=== PATIENT | female | born 1940 | race African-American/Black ===

== ENCOUNTER 2021-03-02 18:29 | Inpatient (IN) | payer MEDICARE, OTHER ==
[2021-03-02] VITALS (90 sets, daily range): BP systolic 146–156; BP diastolic 65–78; PULSE 108–110; TEMP 98.9; O2SAT 89–100
[~2021-03-02] VITALS: Ht 157.5 cm; Wt 49.7 kg
[2021-03-02 19:13] LABS: MEAN CELL VOLUME 86 fl (80.0-100.0); MEAN CORPUSCULAR HGB CONC 31 g/dl (33.0-37.0); MEAN PLATELET VOLUME 12.8 fl (7.4-10.4); PLATELET COUNT 246 K/mm3 (130-400); RED BLOOD COUNT 3.42 M/mm3 (4.10-5.30); REDCELL DISTRIBUTION WIDTH-CV 14.5 % (11.5-14.5)
[2021-03-02 19:17] LABS: HEMATOCRIT 29.5 % (37.0-47.0); HEMOGLOBIN 9.1 g/dl (12.5-16.0); MEAN CORPUSCULAR HEMOGLOBIN 27 pg (27.0-31.0)
[2021-03-02 19:20] LABS: COLLECTION METHOD CATHETER
[2021-03-02 19:26] LABS: ALBUMIN 4.3 gm/dL (3.5-5.0); C-REACTIVE PROTEIN 8.9 mg/dL (0.0-0.9); CALCIUM 9.6 mg/dL (8.4-10.2); CREATININE, serum 2.71 (0.52-1.25); POTASSIUM 5.7 mmol/L (3.4-5.0); TOTAL PROTEIN 9.2 gm/dL (6.4-8.2)
[2021-03-02 19:28] LABS: MUCOUS Present /lpf; PH 5 (5-8); SQUAMOUS EPITHELIAL None Seen /hpf; URINE APPEARANCE Hazy; URINE BACTERIA Rare /hpf; URINE BILIRUBIN Negative (NEGATIVE); URINE BLOOD 2+ (NEGATIVE); URINE COLOR Yellow; URINE GLUCOSE 3+ (NEGATIVE); URINE KETONE 1+ (NEGATIVE); URINE LEUKOCYTE ESTERASE 1+ (NEGATIVE); URINE NITRATE Negative (NEGATIVE); URINE PROTEIN(semi-quant) 1+ (NEGATIVE); URINE RBC 0-2 /hpf; URINE UROBILINOGEN Negative (NEGATIVE)
[2021-03-02 21:38] LABS: BASOPHIL 1 % (0-2); LYMPHOCYTE 21 % (20.0-51.0); NEUTROPHILS 69 % (42.0-75.2)
[2021-03-02 21:39] LABS: PLATELET ESTIMATE NORMAL (NORMAL)
[2021-03-02 21:41] LABS: HYPOCHROMIA 2+
[2021-03-02 22:16] LABS: PHOSPHOROUS 4.2 mg/dL (2.5-4.5)
[2021-03-02 23:27] LABS: CALCIUM 9.4 mg/dL (8.4-10.2); CREATININE, serum 2.41 (0.52-1.25); POTASSIUM 3.9 mmol/L (3.4-5.0)
[2021-03-03] VITALS (1120 sets, daily range): BP systolic 139–166; BP diastolic 60–82; PULSE 98–111; TEMP 98.4–100; O2SAT 76–100
[2021-03-03 03:12] LABS: BASO % 0.3 % (0.0-2.0); EOS % 0.3 % (0-4.0); GRAN # 12.6 (1.4-6.5); GRAN % 79.9 % (42.2-75.2); LYMPH # 1.8 (1.2-3.4); LYMPH % 11.3 % (20.0-51.0); MEAN CELL VOLUME 86 fl (80.0-100.0); MEAN CORPUSCULAR HGB CONC 31 g/dl (33.0-37.0); MEAN PLATELET VOLUME 11.3 fl (7.4-10.4); MONO # 1.2 (0.1-0.6); MONO % 7.5 % (1.7-9.3); PLATELET COUNT 304 K/mm3 (130-400); RED BLOOD COUNT 2.76 M/mm3 (4.10-5.30); REDCELL DISTRIBUTION WIDTH-CV 14.5 % (11.5-14.5)
[2021-03-03 03:13] LABS: HEMATOCRIT 23.8 % (37.0-47.0); HEMOGLOBIN 7.4 g/dl (12.5-16.0); MEAN CORPUSCULAR HEMOGLOBIN 27 pg (27.0-31.0)
[2021-03-03 03:22] LABS: CALCIUM 8.7 mg/dL (8.4-10.2); CREATININE, serum 2.13 (0.52-1.25); POTASSIUM 3.7 mmol/L (3.4-5.0)
[2021-03-03 07:27] LABS: CALCIUM 8.9 mg/dL (8.4-10.2); CREATININE, serum 1.93 (0.52-1.25)
--- NOTE | 2021-03-03 09:23 | NUR ---
The patient has a history of dementia. [employer] contacted the patient's , Cody to complete intake. The patient lives at [facility]. The patient is independent and she has a walker and wheelchair if needed. The patient and Cody moved to [place] a week ago. Cody states their daughter Angelique lives locally and assisted in bringing them to [place]. The patient does not have a PCP but was supposed to have an initial appointment with Dr. Lawton this day at 1300. Cody states that they were going to have [facility] bath aide visit three times a week. The patient does not have advanced directives in the EMR but Cody states they are complete and will bring a copy to place in the chart. The plan is to return home with [facility] bath aide. MARIPOSA contacted Dr. Lawton's office to to provide patient update. MARIPOSA contacted Lynette with [facility]. She reports that the patient has a support medicare specialist and not home health services. *Discharge disposition at this time: Home with support care aides 3x a week.
--- NOTE | 2021-03-03 11:04 | NUR ---
PT is refusing water and food this am. PT answers to name. PT will not answer any other questions.
[2021-03-03 11:12] LABS: CALCIUM 8.8 mg/dL (8.4-10.2); CREATININE, serum 1.95 (0.52-1.25); POTASSIUM 4.3 mmol/L (3.4-5.0)
[2021-03-03] MEDS ORDERED: COZAAR 50MG50 MG/TAB PO (12:42)
[2021-03-03] MEDS ORDERED: JANUVIA50 MG PO (12:43)
--- NOTE | 2021-03-03 15:12 | NUR ---
First visit from the copper roller handler printing. No needs right now.
--- NOTE | 2021-03-03 19:22 | NUR ---
Report given to KILEY López.
--- NOTE | 2021-03-03 20:10 | NUR ---
DAUGTHER IN ROOM DURING ASSESSMENT, PATIENT ALERT SMILING, ON TASK MOST OF THE TIME, CONFUSION ABOUT DATE AND TIME, DENIES PAIN
[2021-03-04] VITALS (594 sets, daily range): BP systolic 136–151; BP diastolic 50–92; PULSE 100–109; TEMP 97.8–99.2; O2SAT 51–100
[2021-03-04 05:24] LABS: BASO # 0.1 (0.0-0.2); BASO % 0.3 % (0.0-2.0); EOS # 0.1 (0.0-0.7); EOS % 0.7 % (0-4.0); GRAN # 13.1 (1.4-6.5); GRAN % 72.2 % (42.2-75.2); LYMPH # 3.3 (1.2-3.4); LYMPH % 18.5 % (20.0-51.0); MEAN CELL VOLUME 87 fl (80.0-100.0); MEAN CORPUSCULAR HGB CONC 30 g/dl (33.0-37.0); MEAN PLATELET VOLUME 11.7 fl (7.4-10.4); MONO # 1.4 (0.1-0.6); MONO % 7.5 % (1.7-9.3); PLATELET COUNT 309 K/mm3 (130-400); RED BLOOD COUNT 2.92 M/mm3 (4.10-5.30); REDCELL DISTRIBUTION WIDTH-CV 14.6 % (11.5-14.5)
[2021-03-04 05:25] LABS: HEMATOCRIT 25.4 % (37.0-47.0); HEMOGLOBIN 7.7 g/dl (12.5-16.0); MEAN CORPUSCULAR HEMOGLOBIN 26 pg (27.0-31.0)
[2021-03-04 05:28] LABS: CALCIUM 9.2 mg/dL (8.4-10.2); CREATININE, serum 1.79 (0.52-1.25); POTASSIUM 3.8 mmol/L (3.4-5.0)
--- NOTE | 2021-03-04 07:31 | NUR ---
PT bedside blood glucose measured at 46. Hypoglycemic protocol followed and pateint given 4oz of orange juice. At the 15 minute check patient is up to 59. 4 more ounces of orange juice given along with a handfult of bites of eggs. PT blood glucose is 71 at 0813. The one hour jan PT is up to 96. Will assess again at noon.
--- NOTE | 2021-03-04 09:10 | NUR ---
Change Management Expert faxed updates to Leeanna at [facility] and to Lynette at [facility] Home [facility].
--- NOTE | 2021-03-04 11:38 | NUR ---
Cigar Head Perforator attended clinical rounds with the team. The patient has orders to transfer to the surgical floor. This SW informed surgical floor SW. Hospitalist discussed goals of care with the patient's , Cody. He would like to discuss this their daughter. *Discharge disposition at this time: [facility] with spouse. Services are Home Health and supportive care. Or possibly hospice, family discussing options.
--- NOTE | 2021-03-04 13:22 | NUR ---
Report called to KILEY Ignacio at 1134.
--- NOTE | 2021-03-04 13:42 | NUR ---
Pt arrived to the floor around 1230. Was told in report that the noon meds would be given, clarified and they were not. Will give now. Pt is confused and was fighting us when we transferred her over to the bed and rolled her to remove excess linens. Upon arrival, INT to her left hand had the IV fluids infusing, hand is puffy, IV infiltrated and removed. INT to her right forearm will not flush, removed. Partida to dependent drainage. Output is very cloudy and odorous. Pts is present with her upon transfer. He stated he would assist her with lunch.
--- NOTE | 2021-03-04 15:54 | NUR ---
Pt has been doing okay since arriving to the floor. IV started in her right wrist.
--- NOTE | 2021-03-04 19:17 | NUR ---
Resting quietly, davalos per gravity w/o issue, patient on telemetry, no s/s of hypo.hyper glycemia, updated on plan of care.
[2021-03-05] VITALS (7 sets, daily range): BP systolic 91–169; BP diastolic 23–80; PULSE 84–107; TEMP 98.2–99.1
[2021-03-05 06:54] LABS: BASO % 0.2 % (0.0-2.0); EOS # 0.2 (0.0-0.7); EOS % 1.3 % (0-4.0); GRAN # 10.6 (1.4-6.5); GRAN % 70.9 % (42.2-75.2); LYMPH # 2.6 (1.2-3.4); LYMPH % 17.5 % (20.0-51.0); MEAN CELL VOLUME 86 fl (80.0-100.0); MEAN CORPUSCULAR HGB CONC 31 g/dl (33.0-37.0); MEAN PLATELET VOLUME 11.8 fl (7.4-10.4); MONO # 1.4 (0.1-0.6); MONO % 9.1 % (1.7-9.3); PLATELET COUNT 340 K/mm3 (130-400); RED BLOOD COUNT 2.87 M/mm3 (4.10-5.30); REDCELL DISTRIBUTION WIDTH-CV 14.4 % (11.5-14.5)
[2021-03-05 06:56] LABS: HEMATOCRIT 24.7 % (37.0-47.0); HEMOGLOBIN 7.6 g/dl (12.5-16.0); MEAN CORPUSCULAR HEMOGLOBIN 26 pg (27.0-31.0)
[2021-03-05 07:08] LABS: CALCIUM 9.1 mg/dL (8.4-10.2); CREATININE, serum 1.65 (0.52-1.25); POTASSIUM 4.2 mmol/L (3.4-5.0)
--- NOTE | 2021-03-05 07:12 | NUR ---
Pt sitting up in bed pleasant behavior. Appears to not be in any pain. Bed alarm on
--- NOTE | 2021-03-05 09:00 | NUR ---
Pt did not eat very much for breakfast. Gave pt total bed bath. Pt fought when we were turning her, but quickly relaxed.
--- NOTE | 2021-03-05 09:32 | NUR ---
Initial visit; Patient thanked Cytotechnologist/Cytology Supervisor for looking in on her and offering prayer and God's blessings.
--- NOTE | 2021-03-05 11:30 | NUR ---
Pt has not eaten or drank much for us today. present in the room at this time. Pts IV has infiltrated. Talked with ASHLEY Yang regarding this has her IV from yesterday infiltrated also. Awaiting orders at this time
--- NOTE | 2021-03-05 14:00 | NUR ---
Sonia Rios meeting with pts and daughter
--- NOTE | 2021-03-05 15:38 | NUR ---
Attempted to meet with patient's Cody with phone call to daughter during meeting but daughter is available to come in to talk. Autumn BAINS also joined the meeting and Celia RAMIREZ did come talk with and daughter as well. Per , they have lived in this area earlier in their lives when he was stationed at [facility]. 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 They have just recently returned to to the area and have an independent living apartment at [facility]. Pt has been in the hospital much of the time that she has been back to the area. At this point, family is wanting a higher level of care for her than can be provided by home health services and has talked with Floyessi about a private room @ [facility] for possible rehab or a intermediate project manager care room. Pt has had a significant decline in her abilities with her UTI, and current hospitalization. Her ability and desire to eat and drink, ambulate, and maintain continence has dropped significantly. Family is requesting comfort care/hospice care for her at this time upon her return to [facility]. Family is also requesting DNR status after discussion. I spoke with Diamond Storm about two son and their wives visiting over the weekend (Noel and Caitlin Michaud, and Jose Maria and Hellen Gracia) which she approved. Angelique is already on the approved visitor list and her Torrey can visit. Family would like to visit her in a "semi-familiar" environment before she is moved one more time to [facility]. Support was provided and family was advised of approved visitors. Comfort quilt was provided.
--- NOTE | 2021-03-05 16:32 | NUR ---
Project Buyer participated in goals of care meeting with KILEY Scott and ASHLEY Ozuna. Patient's and daughter, Francesca (ph#[phone]) feel at this time that rehab would not be beneficial to patient and would like for patient to return to [facility] on hospice. MARIPOSA contacted Leeanna at [facility] and faxed clinical updates. MARIPOSA spoke with Leeanna about goals of care. Leeanna advised they would be able to accept patient back on hospice and that they are allowing hospice agencies in. Leeanna advised they would accept patient when ready for discharge pending coordination with the hospice agency that patient's family chooses for an intake. MARIPOSA followed up with Francesca about hospice agencies that serve [place] and at this time, Francesca chooses [facility]. MARIPOSA contacted Roman (ph#[phone]) at [facility] and faxed referral. MARIPOSA notified Leeanna that patient's family chose [facility]. Discharge Plan: [facility] with [facility].
--- NOTE | 2021-03-05 18:15 | NUR ---
Pt daughter arrived and is going to help see if she can get the pt to eat anything. Scrambled eggs ordered and gave her a pudding from the fridge.
--- NOTE | 2021-03-05 19:20 | NUR ---
Awake, alert, emotional and tearful, visitors at bedside, medicated for pain per MAR, ice pack applied to abdomen, updated patient on plan of care, call samuels w/i reach.
[2021-03-06 00:10] VITALS: BP 140/65; PULSE 100; TEMP 98.5
[2021-03-06 04:11] VITALS: BP 130/59; PULSE 97; TEMP 97.5
[2021-03-06 07:41] VITALS: BP 110/68; PULSE 89; TEMP 97.4
--- NOTE | 2021-03-06 09:09 | NUR ---
MD Jus notified pt's daughter stated on telephone this morning "she was complaining it hurt when she was chewing food. Maybe she has a dental cavity or abcess that was the main cause of everything here" MD Jus will perform oral assessment
[2021-03-06 11:25] VITALS: BP 141/65; PULSE 83; TEMP 97.9
--- NOTE | 2021-03-06 13:06 | NUR ---
DTR called and has concerns about hosipice care. DTR indicated that she wants her family to be able to visit and would be looking toward a noon transfer because on the the Adult children is coming from [place]. DTR asked questions about care supports and prompting of food. SW educated DTR on care supports and reassured of comfort process. Plan is to support DC tomorrow with Coordination of care.
[2021-03-06 15:53] VITALS: BP 154/64; PULSE 87; TEMP 97.9
--- NOTE | 2021-03-06 19:13 | NUR ---
Awake, alert, confused, daughter and at bedside, patient is total care, feeding assistance is required, tolerating purreed food at this time, no s/s of hypo/hyper glycemia, updated family and patient on plan of care.
[2021-03-06 20:38] VITALS: BP 115/62; PULSE 92; TEMP 99.5
[2021-03-07 00:51] VITALS: BP 145/57; PULSE 93; TEMP 98.2
[2021-03-07 04:35] VITALS: BP 136/55; PULSE 88; TEMP 98.1
[2021-03-07 06:57] LABS: MEAN CELL VOLUME 86 fl (80.0-100.0); MEAN CORPUSCULAR HGB CONC 32 g/dl (33.0-37.0); MEAN PLATELET VOLUME 11.4 fl (7.4-10.4); RED BLOOD COUNT 2.76 M/mm3 (4.10-5.30); REDCELL DISTRIBUTION WIDTH-CV 14.2 % (11.5-14.5)
[2021-03-07 07:02] LABS: CREATININE, serum 1.84 (0.52-1.25); POTASSIUM 4.2 mmol/L (3.4-5.0)
[2021-03-07 07:32] LABS: HEMATOCRIT 23.8 % (37.0-47.0); HEMOGLOBIN 7.5 g/dl (12.5-16.0); MEAN CORPUSCULAR HEMOGLOBIN 27 pg (27.0-31.0); PLATELET COUNT 448 K/mm3 (130-400)
[2021-03-07 08:00] VITALS: BP 106/39; PULSE 90; TEMP 98
--- NOTE | 2021-03-07 08:00 | NUR ---
PATIENT IS CONFUSED BUT ORIENTED TO PERSON. VSS. NO C/O PAIN OR NAUSEA. AM BS WAS 153. AM MEDS GIVEN. PUREE DIET, PATIENT REFUSING TO EAT. AT BEDSIDE. DNR. PLAN IS TO TRANSFER TO [facility] TODAY. ALCANTARA TO DD WITH MOD AMOUNTS OF PINK-TINGED URINE NOTED. REPLACED STAT-LOCK FOR ALCANTARA PATIENT KEEPS PULLING IT OFF. REPOSITIONED PATIENT TO COMFORT. HEAD TO TOE ASSESSMENT COMPLETE. BED ALARM ON. CALL LIGHT IN REACH.
[2021-03-07 09:12] LABS: EOSINOPHIL 2 % (0-4); LYMPHOCYTE 31 % (20.0-51.0); NEUTROPHILS 57 % (42.0-75.2); PLATELET ESTIMATE INCREASED (NORMAL)
[2021-03-07 09:13] LABS: HYPOCHROMIA 2+
[2021-03-07] MEDS ORDERED: OMNICEF 300MG300 MG PO (09:29)
[2021-03-07] MEDS ORDERED: ROXANOL 20MG20 MG/ML PO (09:39)
--- NOTE | 2021-03-07 10:40 | NUR ---
Faxed DC order to [facility] at 10:40 am for Hospice Care made contact with [facility] Anna Marie to coordiate care at [facility] at 12:00 [facility] will transport via Wheelchair to [facility] notifed nurse. PRIYA
[2021-03-07 11:38] VITALS: BP 141/57; PULSE 84; TEMP 98.9
--- NOTE | 2021-03-07 12:30 | NUR ---
PATIENT DISCHARGING VIA WC TO HOSPICE AT [facility] VIA VAN SERVICE. GAVE INFO PACKET TO AUDIOLOGY DIRECTOR. FAMILY HAS PERSONAL BELONGINGS. NO IV SITE. CALLED REPORT TO [facility] NURSE. PATIENT DISCHARGED.
== END 2021-03-07 12:30 | disposition hospice, inpatient (51) | DRG 638 ==
LOC: COL.ER 18:29 → SURG 20:38 → ICU 20:38 → SURG 03-04 12:30
PROVIDERS: Nurse Practitioner; Physician Assistant; Student in an Organized Health Care Education/Training Program; ADMIT Emergency Medicine
DX: E11.10 Type 2 diabetes mellitus with ketoacidosis without coma (principal); N39.0 Urinary tract infection, site not specified; R65.10 Systemic inflammatory response syndrome (SIRS) of non-infectious origin without acute organ dysfunction; N17.9 Acute kidney failure, unspecified; I10 Essential (primary) hypertension; I12.9 Hypertensive chronic kidney disease with stage 1 through stage 4 chronic kidney disease, or unspecified chronic kidney disease; E11.22 Type 2 diabetes mellitus with diabetic chronic kidney disease; F03.90 Unspecified dementia, unspecified severity, without behavioral disturbance, psychotic disturbance, mood disturbance, and anxiety; E87.5 Hyperkalemia; D64.9 Anemia, unspecified; Z66 Do not resuscitate
CPT/HCPCS: 99223-AI; 99231-AI; 99233-AI; 99239; A4314; J0610; J0692; J0696; J1815; J3480; J7030; J7120